=== PATIENT | female | born 1980 | race Caucasian/White ===

== ENCOUNTER 2018-05-21 08:17 | Emergency (ER) | END 2018-05-21 09:01 | disposition home or self-care (01) ==

== ENCOUNTER 2019-02-06 04:57 | Emergency (ER) | payer BC ==
[~2019-02-06] VITALS: Ht 160 cm; Wt 118.5 kg
[~2019-02-06 04:57] MED LIST: CEPH-443 PO; IBUP-1542 PO; SULF1TAB31 PO
[2019-02-06 05:03] VITALS: Ht 160 cm; Wt 118.5 kg
[2019-02-06 05:58] VITALS: BP 157/93; PULSE 79; RESP 18
--- NOTE | 2019-02-06 06:24 | ERD ---
ER Documentation Chief Complaint Chief Complaint BIB SELF; CC; PRODUCTIVE COUGH X 1 WEEK HPI This is a 38-year-old female with a past medical history of hypertension who is presenting with 1 week of a productive congested cough of clear/green sputum. The patient endorses discomfort in her throat when her symptoms first started, but she does not have this now. She was seen at urgent care and treated with albuterol and a course of steroids. She is still completing this course, but her cough is still persisted. She denies any fever or chills. She does endorse slight wheezing. The patient has had no chest pain or trouble breathing or pleuritic pain. She does not endorse any alleviating or exacerbating factors. The patient has had no headache or vision changes. The patient does not endorse neck or back pain. The patient denies lightheadedness or dizziness. The patient denies nausea or vomiting. The patient denies abdominal pain. The patie nt denies changes to bowel movements or urination. The patient has had no focal deficits. The patient has had no weakness or numbness or tingling to the face or extremities. ROS All systems reviewed and are negative except as per history of present illness. Medications Home Meds Active Scripts Sulfamethoxazole/Trimethoprim* (Bactrim Ds* Tablet) 1 Each Tablet, 1 TAB PO BID, #14 TAB Prov:ANA ROLDAN PA-C 05/21/18 Cephalexin* (Keflex*) 500 Mg Capsule, 500 MG PO TID for 7 Days, CAP Prov:ANA ROLDAN-C 05/21/18 Ibuprofen* (Motrin*) 600 Mg Tab, 600 MG PO Q6, #30 TAB Prov:ANA ROLDAN-C 05/21/18 Allergies Allergies: Coded Allergies: latex (Verified Allergy, Unknown, burning sensation, 05/21/18) PMhx/Soc History of Surgery: Yes ([place], Right elbow nerve sx,left finger sx) Hx Cardiac Disorders: Yes (HTN) Hx Alcohol Use: No Hx Substance Use: No Hx Tobacco Use: No Smoking Status: Never smoker FmHx Family History: No diabetes Physical Exam Vitals Vital Signs Date Temp Pulse Resp B/P (MAP) Pulse Ox O2 O2 Flow FiO2 Time Delivery Rate 02/06/19 98.1 79 18 157/93 95 05:58 (114) 02/06/19 98.1 104 18 157/93 95 05:03 (114) Physical Exam Const: No acute distress Head: Atraumatic Eyes: Normal Conjunctiva ENT: Normal External Ears, Nose and Mouth. Neck: Full range of motion. No meningismus. Resp: No increased work of breathing. Faint end expiratory wheezes bilaterall y. Cardio: Regular rate and rhythm, no murmurs Abd: Soft, non tender, non distended. Normal bowel sounds Skin: No petechiae or rashes Back: No midline or flank tenderness Ext: No cyanosis, or edema Neur: Awake and alert Psych: Normal Mood and Affect Procedures/MDM MDM The patient presents for persistent cough over the last week. She does have slight wheezes as well. The patient was treated with nebulized albuterol in the emergency department with improvement of her shortness of breath. A viral etiology is certainly a possibility, and her symptoms are still less than 10 to 14 days. That said, given her persistence of symptoms, I do plan to give the patient a prescription for antibiotics. The patient's lungs are otherwise clear. All bronchitis is a possibility, I have very low suspicion for pneumonia. I do not suspect strep pharyngitis. She has a significant cough. She has no fever. She has no tonsillar exudate. She has no lymphadenopathy. DISCHARGE Upon reevaluation of the patient, symptoms have improved. No emergent diagnoses were identified. At this time, I feel that the patient stable for discharge. The patient was instructed to follow-up with a primary care physician in 1-3 days. The patient will be given strict precautions with which to return to the emergency department. Prescriptions: Ibuprofen, Z-Ted The patient's blood pressure was elevated at greater than 120/80 while in the emergency department. The patient was otherwise stable with no evidence of hypertensive urgency or emergency. The patient does not require admission for blood pressure control. I have discussed with the patient the risks of hypertension. I have instructed the patient to return to the ER for any new or worsening symptoms including chest pain, shortness of breath, headache, blurred vision, confusion, nausea, vomiting or LOC. I have advised the patient to follow up with the primary care physician for outpatient monitoring and treatment for hypertension in 1-3 days. Disclaimer: Inadvertent spelling and grammatical errors are likely due to EHR/dictation software use and do not reflect on the overall quality of patient care. Note that the electronic time recorded on this note does not necessarily reflect the actual time of the patient encounter. Departure Diagnosis: Primary Impression: Bronchitis Additional Impressions: Upper respiratory infection URI type: unspecified URI Qualified Codes: J06.9 - Acute upper respiratory infection, unspecified Wheezing Cough Chest congestion Condition: Stable Patient Instructions: Preventing Common Respiratory Infections, Bronchitis With Wheezing (Adult) Additional Instructions: Thank you for for coming to [facility] for your care today. Please ask your nurse or provider if you have questions about your care today and do not leave until all your questions have been answered. Please use any medications given as directed and follow-up with your doctor (or the doctor you were referred to) in the next 1-3 days. If you do not have a primary care doctor you may follow up at the [facility] or [facility] (listed below). You may also use motrin and tylenol as needed for fever and/or pain unless instructed otherwise by your provider or nurse. Indications for more urgent follow-up have been discussed, but you may return to the Emergency Department at ANY time for any worrisome or worsening symptoms. If you have abdominal pain, please know that no test or exam you received is perfect and you should follow up within 8 hours for continued pain. If you had any imaging studies today, such as an X-Ray or CT Scan, these studies will be reviewed later by a radiologist. You will be called if there are important findings that were not identified today, so make sure the contact information you provided at registration is correct. If you received any narcotic pain control medicine today, such as Vicodin, Morphine or Dilaudid, your coordination and judgment may be affected for a number of hours. Please do not drive or operate heavy machinery, and you may want someone to assist you at home. If you were given a prescription for narcotic medication, be aware that it is very addictive- use sparingly and only if necessary. PLEASE SEEK FURTHER EVALUATION AND MANAGEMENT AT YOUR DOCTORS OFFICE WITHIN THE NEXT 1-3 DAYS. IT IS YOUR RESPONSIBILITY TO MAKE AN APPOINTMENT FOR FOLOW-UP CARE. IF YOU HAVE A PRIMARY DOCTOR, PLEASE CALL THEIR OFFICE TO SCHEDULE AN APPOINTMENT FOR FOLLOW UP. IF YOU DO NOT HAVE A PRIMARY DOCTOR YOU CAN CALL OUR PHYSICIAN REFERRAL HOTLINE AT IF YOU CAN NOT AFFORD TO SEE A PHYSICIAN YOU CAN CHOSE FROM THE FOLLOWING [facility]: [facility] [address] [facility] [address] [facility] [address] [facility] [address] [facility] [address] [facility]. [facility]. [address] JESSA FELIX MD Feb 06, 2019 06:24
[2019-02-06] MEDS ORDERED: IBUP-1542 PO (06:42)
[2019-02-06] MEDS ORDERED: AZIT250T PO (06:42)
== END 2019-02-06 07:03 | disposition home or self-care (01) ==
LOC: E/R 04:57
DX: J40 Bronchitis, not specified as acute or chronic (principal); I10 Essential (primary) hypertension; J06.9 Acute upper respiratory infection, unspecified; Z91.040 Latex allergy status
CPT/HCPCS: 99283